=== PATIENT | female | born 1960 | race Caucasian/White ===

== ENCOUNTER 2022-10-28 12:42 | Outpatient (CLI) | payer OTHER ==
--- NOTE | 2022-10-28 16:04 | XRAY Report ---
PROCEDURE: Lumbar Spine 2 View INDICATIONS: LUMBAR BACK PAIN TECHNIQUE: 3 views of the lumbar spine were acquired. COMPARISON: X-ray hip 10/28/2022 FINDINGS: Bones: 5 [id number] vertebrae are present. There is normal bony alignment. Moderate disc and foraminal narrowing is noted at L5-S1. No vertebral body compression fractures. No suspicious bony l esions. Soft tissues: Overlying bowel gas pattern is normal. No suspicious soft tissue calcifications. IMPRESSION: Degenerative changes most minimal L5-S1. Reviewed by: Lindsey Jones MD on 10/28/2022 4:03 PM PST Approved by: Lindsey Jones MD on 10/28/2022 4:03 PM PST Station ID: [id number]
--- NOTE | 2022-10-28 16:05 | XRAY Report ---
PROCEDURE: Hips 2V BILAT INDICATIONS: BILATERAL HIP JOINT PAIN TECHNIQUE: 2 views of the hip were acquired. COMPARISON: X-ray lumbar spine 10/28/2022 FINDINGS: Bones: No fractures or dislocations. No suspicious bony lesions. The visualized pelvic ring appear s intact. Moderate to severe bilateral degenerative narrowing of the hip joints bilaterally. No eros ions. No particular osteophyte Soft tissues: No suspicious soft tissue calcifications or masses. IMPRESSION: Moderate to severe bilateral hip arthritic change. Reviewed by: Lindsey Jones MD on 10/28/2022 4:04 PM PST Approved by: Lindsey Jones MD on 10/28/2022 4:04 PM PST Station ID: [id number]
== END 2022-10-28 12:45 | disposition home or self-care (01) ==
LOC: DI.S 12:42
PROVIDERS: ATTEND Registered Nurse
DX: M47.817 Spondylosis without myelopathy or radiculopathy, lumbosacral region (principal); M16.0 Bilateral primary osteoarthritis of hip